=== PATIENT | male | born 1990 | race Caucasian/White ===

== ENCOUNTER 2017-10-25 12:11 | Emergency (ER) | payer OTHER ==
[~2017-10-25] VITALS: Ht 167.6 cm; Wt 67.9 kg
[2017-10-25] MEDS ORDERED: DIPHENHYDRAMINE 50 MG/ML, 1ML ONE (12:57)
[2017-10-25] MEDS ORDERED: METOCLOPRAMIDE 5 MG/ML, 2ML ONE (12:57)
[2017-10-25] MEDS ORDERED: DIPHENHYDRAMINE 50 MG/ML, 1ML IVPush ONE (13:00)
[2017-10-25] MEDS ORDERED: SODIUM CHLORIDE FLUSH 10ML SYR IVF ONE (13:00)
[2017-10-25] MEDS ORDERED: SODIUM CHLORIDE 0.9% 1,000ML IVBOLUS ONE (13:00)
[2017-10-25] MEDS ORDERED: METOCLOPRAMIDE 5 MG/ML, 2ML IVPush ONE (13:00)
[2017-10-25] MEDS ORDERED: KETOROLAC 30 MG/1 ML IVPush ONE (14:30)
[2017-10-25] MEDS ORDERED: KETOROLAC 30 MG/1 ML ONE (14:37)
[2017-10-25 15:04] VITALS: BP 123/89
== END 2017-10-25 15:06 | disposition home or self-care (01) ==
LOC: ED 14:30
DX: R51 Headache (principal); R11.0 Nausea
CPT/HCPCS: 70450; 96361; 96374; 96375; 99285; J1200; J1885; J2765; J7030

== ENCOUNTER 2018-11-01 22:10 | Emergency (ER) | payer MEDICAID, OTHER ==
[~2018-11-01] VITALS: Ht 167.6 cm; Wt 69.7 kg
[2018-11-01 22:15] VITALS: BP 127/84
--- NOTE | 2018-11-01 22:18 | NUR ---
NEGATIVE STROKE SCALE ASSESSMENT
--- NOTE | 2018-11-01 23:32 | NUR ---
PAIN AND WEAKNESS IN LEFT ARM X 2 WEEKS. C/O LOWER BACK PAIN, NUMBNESS IN BILAT LEGS. DENIED RECENT INJURIES. PT AMBULATE STEADILY. DENIED URINARY SYMPTOMS
[2018-11-01] MEDS ORDERED: IBUPROFEN 600 MG TABLET ONE (23:41)
[2018-11-01] MEDS ORDERED: IBUPROFEN 600 MG TABLET PO ONE (23:45)
[2018-11-02] MEDS ORDERED: MELOXICAM 15 MG TABLET PO ONE
[2018-11-02] MEDS ORDERED: IBUPROFEN 200 MG TABLET PO ONE
--- NOTE | 2018-11-02 00:47 | NUR ---
TASK RN: DC EDUCATION PROVIDED, PT DEMONSTRATES UNDERSTANDING. PT AMBULATED STEADILY TO DC WITH RN
== END 2018-11-02 00:50 | disposition home or self-care (01) ==
LOC: ED 11-02 00:26
DX: S16.1XXA Strain of muscle, fascia and tendon at neck level, initial encounter (principal); S39.012A Strain of muscle, fascia and tendon of lower back, initial encounter; R20.2 Paresthesia of skin; G89.29 Other chronic pain; Z90.49 Acquired absence of other specified parts of digestive tract; X58.XXXA Exposure to other specified factors, initial encounter; Y93.89 Activity, other specified; Y92.89 Other specified places as the place of occurrence of the external cause; Y99.8 Other external cause status
CPT/HCPCS: 70450; 72125; 72131; 99284

== ENCOUNTER 2019-12-09 13:25 | Inpatient (IN) | payer SELFPAY ==
[~2019-12-09] VITALS: Ht 170.2 cm; Wt 76.0 kg
[2019-12-09 14:07] LABS: BASOPHILS # (AUTO) 0.06 x10^3/uL (0-0.1); BASOPHILS % (AUTO) 1 % (0-1); EOSINOPHILS # (AUTO) 0.03 x10^3/uL (0-0.4); EOSINOPHILS % (AUTO) 0 % (1-7); LYMPHOCYTES # (AUTO) 1.48 x10^3/uL (1-3.4); LYMPHOCYTES % (AUTO) 15 % (22-44); MD NO; MEAN CORPUSCULAR HEMOGLOBIN 31.2 pg (27.5-34.5); MEAN CORPUSCULAR HGB CONC 34.1 g/dL (33.2-36.2); MEAN CORPUSCULAR VOLUME 91.4 fL (81-97); MEAN PLATELET VOLUME 8.2 fL (7.4-10.4); MONOCYTES # (AUTO) 0.46 x10^3/uL (0.2-0.8); MONOCYTES % (AUTO) 5 % (2-9); NEUTROPHILS # (AUTO) 8.19 x10^3/uL (1.8-6.8); NEUTROPHILS % (AUTO) 80 % (42-75); PLATELET COUNT 238 x10^3/uL (130-400); RED BLOOD COUNT 5.23 x10^6/uL (4.38-5.82); RED CELL DISTRIBUTION WIDTH 11.9 % (9.4-14.8)
[2019-12-09 14:14] LABS: ALBUMIN 4.7 g/dL (3.4-5.0); ANION GAP 8 mmol/L (5-15); CALCIUM 9.3 mg/dL (8.5-10.1); CHLORIDE 104 mmol/L (98-107)
[2019-12-09 14:20] LABS: ALANINE AMINOTRANSFERASE 143 U/L (12-78); ALKALINE PHOSPHATASE 166 U/L (45-117); BILIRUBIN,TOTAL 1.4 mg/dL (0.2-1.0); CREATININE 0.88 mg/dL (0.7-1.3); TOTAL PROTEIN 8.4 g/dL (6.4-8.2)
--- NOTE | 2019-12-09 16:25 | NUR ---
PT'S FATHER REQUESTING TO SPEAK WITH A COVER INSPECTOR. THIS RN CAMP MANAGER SPOKE C PT'S FATHER REGARDING WAIT TIME - DISCUSSED POC AND TRIAGE PROCESS. PT'S FATHER VERBALIZED UNDERSTANDING, WILL CONTINUE TO WAIT W/ HIS SON.
--- NOTE | 2019-12-09 16:29 | NUR ---
WILBERT RN: PT AMBULATORY WITH STEADY GAIT TO TRIAGE FOR VS. VSS. PT EDUCATED REGARDING THE NEED TO REMAIN IN THE LOBBY AT THIS TIME. PT STATES "DON'T YOU HAVE ANY MEDICATION FOR PAIN?" PT EDUCATED REGARDING POLICY REGARDING PAIN MEDICATION ADMINISTRATION AND REMAINING IN THE LOBBY.
--- NOTE | 2019-12-09 17:20 | NUR ---
TO ROOM FROM LOBBY. NAD.
--- NOTE | 2019-12-09 18:12 | NUR ---
ASSUMING CARE OF PATIENT AT THIS TIME. RN IN A DIFFERENT PATIENT ROOM WHEN PATIENT WAS BROUGHT BACK TO ED ROOM 12.
[2019-12-09] MEDS ORDERED: ONDANSETRON 2MG/ML, 2ML IVPush ONE (19:30)
[2019-12-09] MEDS ORDERED: SODIUM CHLORIDE FLUSH 10ML SYR IVF ONE (19:30)
[2019-12-09] MEDS ORDERED: HYDROmorphone 2 MG/ML, 1ML IVPush PRN ×2 (19:30→22:30)
--- NOTE | 2019-12-09 19:30 | NUR ---
CONTINUE TO AWAIT ORDERS. PT UP TO BR TO COLLECT URINE. UA OBTAINED AND SENT.
[2019-12-09] MEDS ORDERED: SODIUM CHLORIDE 0.9% 1,000ML IVBOLUS ONE (20:00)
[2019-12-09] MEDS ORDERED: OMNIPAQUE 350 MG/ML, 100ML BOTTLE ONE (20:00)
[2019-12-09] MEDS ORDERED: ONDANSETRON 2MG/ML, 2ML ONE ×2 (20:05→22:45)
[2019-12-09] MEDS ORDERED: HYDROmorphone 1 MG/ML, 1ML INJ ONE (20:05)
--- NOTE | 2019-12-09 20:20 | NUR ---
PT RESTING COMFORTABLY, AWAITING CT FOR TEST. PAIN MEDICATION GIVEN WITH GOOD RESULTS. GIRLFRIEND REMAINS AT BEDSIDE.
[2019-12-09 20:30] LABS: MICROSCOPIC NOT IND
[2019-12-09 20:39] LABS: CULTURE INDICATED? NO
--- NOTE | 2019-12-09 20:46 | NUR ---
PT RETURNED FROM CT. PT REQUESTING SOMETHING TO EAT.
[2019-12-09] MEDS ORDERED: CEFOTETAN PMX 1GM/50ML 50 ML ONE (21:21)
[2019-12-09] MEDS ORDERED: EPINEPHRINE 1 MG/ML, 1ML ONE (21:25)
[2019-12-09] MEDS ORDERED: BUPIVACAINE/PF 0.5% ONE (21:25)
[2019-12-09] MEDS ORDERED: CEFOTETAN PMX 1GM/50ML 50 ML IV ONE (21:30)
[2019-12-09] MEDS ORDERED: BUPIVACAINE/PF-EPI 0.5% 1:200K INFIL ONE (21:35)
--- NOTE | 2019-12-09 21:35 | NUR ---
REPORT TO OR. OR TO BEDSIDE TO TRANSPORT TO OR. GIRLFRIEND WITH PATIENT.
[2019-12-09] MEDS ORDERED: FENTANYL PF 250 MCG/5ML ONE (21:51)
[2019-12-09] MEDS ORDERED: LIDOCAINE 4%, 4 ML SYR/CANN TP ONE (21:56)
[2019-12-09] MEDS ORDERED: HALOPERIDOL 5 MG/ML IV PRN (22:30)
[2019-12-09] MEDS ORDERED: hydrALAzine 20 MG/ML, 1ML IV PRN (22:30)
[2019-12-09] MEDS ORDERED: MEPERIDINE/PF 25MG/ML,1ML IVPush PRN (22:30)
[2019-12-09] MEDS ORDERED: FENTANYL PF 100 MCG/2ML IV PRN (22:30)
[2019-12-09] MEDS ORDERED: OXYcodone 5 MG/5 ML ORAL.SOL UDC PO PRN (22:30)
[2019-12-09] MEDS ORDERED: PROMETHAZINE 25 MG/ML, 1ML IV PRN (22:30)
[2019-12-09] MEDS ORDERED: LABETALOL 5MG/ML, 20ML IV PRN (22:30)
[2019-12-09] MEDS ORDERED: D5%-0.45NACL+KCL 20MEQ 1,000 ML IV SCH (22:39)
[2019-12-09] MEDS ORDERED: MEPERIDINE/PF 25MG/ML,1ML ONE (22:40)
[2019-12-09] MEDS ORDERED: DEXAMETHASONE 4 MG/ML, 1ML ONE (22:45)
[2019-12-09] MEDS ORDERED: CEFAZOLIN 1,000 MG ONE (22:45)
[2019-12-09] MEDS ORDERED: SUCCINYLCHOLINE 20 MG/ML, 10ML ONE (22:45)
[2019-12-09] MEDS ORDERED: PROPOFOL 10 MG/ML, 20ML ONE (22:45)
[2019-12-09] MEDS ORDERED: NEOSTIGMINE 1 MG/ML, 10ML ONE (22:45)
[2019-12-09] MEDS ORDERED: ROCURONIUM 10MG/ML,5ML ONE (22:45)
[2019-12-09] MEDS ORDERED: GLYCOPYRROLATE 0.2MG/1ML, 5ML ONE (22:45)
[2019-12-09] MEDS ORDERED: OXYcodone 5 MG/5 ML ORAL.SOL UDC ONE (22:49)
[2019-12-09] MEDS ORDERED: KETOROLAC 30 MG/1 ML ONE (22:50)
[2019-12-09] MEDS: KETOROLAC 30 MG/1 ML IV PRN (22:52)
[2019-12-09] MEDS ORDERED: DIPHENHYDRAMINE 25 MG CAPSULE PO PRN (23:00)
[2019-12-09] MEDS ORDERED: ACETAMINOPHEN 650 MG/20.3 ML UDC PO PRN (23:00)
[2019-12-09] MEDS ORDERED: MORPHINE SULFATE 4 MG/ML, 1ML IVPush PRN (23:00)
[2019-12-09] MEDS ORDERED: ONDANSETRON 2MG/ML, 2ML IVPush PRN (23:00)
[2019-12-10 00:29] VITALS: BP 108/71
[2019-12-10 04:03] VITALS: BP 100/64
[2019-12-10] MEDS: KETOROLAC 30 MG/1 ML IV PRN (05:08)
[2019-12-10] MEDS: HYDROcodone/APAP 5/325 TABLET PO PRN ×2 (06:17→10:17)
[2019-12-10 06:54] VITALS: BP 113/67
[2019-12-10 07:50] VITALS: BP 109/60
[2019-12-10] MEDS ORDERED: ENOXAPARIN 40 MG/0.4 ML SQ SCH (09:00)
[2019-12-10] MEDS ORDERED: HYDR-36 PO (10:39)
[2019-12-10] MEDS ORDERED: ONDA4TAB7 PO (10:39)
== END 2019-12-10 11:20 | disposition home or self-care (01) | DRG 343 ==
LOC: ED 21:26 → EDIP 21:44 → 4NE 23:21 → DCLOUNGE 12-10 11:17
PROVIDERS: ADMIT Surgery; ATTEND Surgery
PROC: 0DTJ4ZZ Resection of Appendix, Percutaneous Endoscopic Approach (ICD-10-PCS; principal; 2019-12-09 21:30)
DX: K35.30 Acute appendicitis with localized peritonitis, without perforation or gangrene (principal); Z83.79 Family history of other diseases of the digestive system; Z90.49 Acquired absence of other specified parts of digestive tract
CPT/HCPCS: 36415; S0020; 74177; 76700; 80053; 81003; 83690; 85025; 88304; G0378; J0171; J0690; J1100; J1650; J1885; J2405; J2704; J2710; J3010; Q9967; J0330; J2175; J3480; J3490; J7030

== ENCOUNTER 2019-12-17 14:52 | Emergency (ER) | payer SELFPAY ==
[~2019-12-17] VITALS: Ht 170.2 cm; Wt 71.0 kg
[~2019-12-17 14:52] MED LIST: HYDR-36 PO; ONDA4TAB7 PO
--- NOTE | 2019-12-17 15:19 | NUR ---
PT AMBULATORY TO ROOM, COMPLAINING OF ABD PAIN WITH HISTORY OF APPY ON Thursday12/08/19. IV TO BE ESTABLISHED AND PT TO BE MEDICATED FOR PAIN ACCORDING TO MAR.
[2019-12-17] MEDS ORDERED: MORPHINE SULFATE 4 MG/ML, 1ML IVPush PRN (15:30)
[2019-12-17] MEDS ORDERED: SODIUM CHLORIDE FLUSH 10ML SYR IVF ONE (15:30)
[2019-12-17] MEDS ORDERED: SODIUM CHLORIDE 0.9% 1,000ML IVBOLUS ONE (15:30)
[2019-12-17 15:35] LABS: BASOPHILS # (AUTO) 0.08 x10^3/uL (0-0.1); BASOPHILS % (AUTO) 1 % (0-1); EOSINOPHILS # (AUTO) 0.15 x10^3/uL (0-0.4); EOSINOPHILS % (AUTO) 3 % (1-7); LYMPHOCYTES # (AUTO) 1.81 x10^3/uL (1-3.4); LYMPHOCYTES % (AUTO) 33 % (22-44); MD NO; MEAN CORPUSCULAR HEMOGLOBIN 31.1 pg (27.5-34.5); MEAN CORPUSCULAR HGB CONC 34.8 g/dL (33.2-36.2); MEAN CORPUSCULAR VOLUME 89.4 fL (81-97); MEAN PLATELET VOLUME 7.5 fL (7.4-10.4); MONOCYTES # (AUTO) 0.37 x10^3/uL (0.2-0.8); MONOCYTES % (AUTO) 7 % (2-9); NEUTROPHILS # (AUTO) 3.04 x10^3/uL (1.8-6.8); NEUTROPHILS % (AUTO) 56 % (42-75); PLATELET COUNT 262 x10^3/uL (130-400); RED BLOOD COUNT 4.99 x10^6/uL (4.38-5.82); RED CELL DISTRIBUTION WIDTH 12.2 % (9.4-14.8)
[2019-12-17 15:47] LABS: ALANINE AMINOTRANSFERASE 268 U/L (12-78); ALBUMIN 3.9 g/dL (3.4-5.0); ANION GAP 7 mmol/L (5-15); CALCIUM 8.7 mg/dL (8.5-10.1); CHLORIDE 107 mmol/L (98-107)
[2019-12-17 15:51] LABS: ALKALINE PHOSPHATASE 226 U/L (45-117); BILIRUBIN,TOTAL 0.9 mg/dL (0.2-1.0); TOTAL PROTEIN 7.8 g/dL (6.4-8.2)
[2019-12-17] MEDS ORDERED: MORPHINE SULFATE 4 MG/ML, 1ML ONE (16:00)
[2019-12-17 16:04] LABS: MICROSCOPIC INDICATED
--- NOTE | 2019-12-17 16:05 | NUR ---
PT GIVEN MORPHINE, PT COMPLAINED OF BARKER AND MILD NAUSEA. WILL CONTINUE TO MONITOR. PT EDUCATED TO STAY IN BED, SIDE RAILS UP, CALL LIGHT IN REACH, RESPIRATIONS EVEN AND UNLABORED.
[2019-12-17 16:10] LABS: CULTURE INDICATED? NO
--- NOTE | 2019-12-17 16:20 | NUR ---
PT SITTING IN BED PLAYING CARDS WITH GIRLFRIEND.
--- NOTE | 2019-12-17 17:03 | NUR ---
IV BOLUS INFUSING, PT REPORTS BARKER IS NOW DULL, HAVING IMPROVED, DENIES NAUSEA. PT REPORTS NEW ONSET UPPER BACK PAIN, RIGHT OF SPINE. SITTING IN BED ON LAPTOP DOING WORK.
--- NOTE | 2019-12-17 17:36 | NUR ---
PT TO CT
--- NOTE | 2019-12-17 17:48 | NUR ---
pt back from ct, girlfriend at bedside.
[2019-12-17] MEDS ORDERED: OMNIPAQUE 350 MG/ML, 100ML BOTTLE ONE (17:52)
[2019-12-17 18:20] VITALS: BP 108/67
--- NOTE | 2019-12-17 18:31 | NUR ---
dr. diez at bedside. updating pt on results and poc. pt sitting in bed watching tv, no signs of distress, girlfriend at bedside.
[2019-12-17] MEDS ORDERED: ONDANSETRON 2MG/ML, 2ML IVPush ONE (19:00)
== END 2019-12-17 18:57 | disposition home or self-care (01) ==
LOC: ED 15:21
DX: S30.1XXA Contusion of abdominal wall, initial encounter (principal); R10.84 Generalized abdominal pain; K59.00 Constipation, unspecified; R50.9 Fever, unspecified; G89.29 Other chronic pain; Z90.49 Acquired absence of other specified parts of digestive tract; X58.XXXA Exposure to other specified factors, initial encounter; Y93.89 Activity, other specified; Y92.89 Other specified places as the place of occurrence of the external cause; Y99.8 Other external cause status
CPT/HCPCS: 36415; 74177; 80053; 81001; 83690; 85025; 96374; 99285; J2270; J7030; Q9967